=== PATIENT | male | born 1985 | race Two or more races ===

== ENCOUNTER 2023-02-03 15:37 | Emergency (ER) | payer OTHER ==
[~2023-02-03] VITALS: Ht 167.6 cm; Wt 67.1 kg
== END 2023-02-03 17:46 | disposition home or self-care (01) ==
LOC: ER 15:37
DX: S50.812A Abrasion of left forearm, initial encounter (principal); V43.52XA Car driver injured in collision with other type car in traffic accident, initial encounter; Y93.89 Activity, other specified; Y92.413 State road as the place of occurrence of the external cause